=== PATIENT | male | born 1960 | race Caucasian/White ===

== ENCOUNTER 2019-05-24 11:17 | Emergency (ER) | payer MEDICAID ==
[~2019-05-24] VITALS: Ht 172.7 cm; Wt 67.9 kg
[2019-05-24 11:29] VITALS: BP 153/82
== END 2019-05-24 13:17 | disposition home or self-care (01) ==
LOC: ED 13:11
DX: K04.7 Periapical abscess without sinus (principal); B07.8 Other viral warts; F17.210 Nicotine dependence, cigarettes, uncomplicated
CPT/HCPCS: 41800; 99283